=== PATIENT | male | born 1990 | race Caucasian/White ===

== ENCOUNTER 2021-04-22 22:02 | Inpatient (IN) | payer OTHER ==
[~2021-04-22] VITALS: Ht 188 cm; Wt 99.8 kg
[~2021-04-22 22:02] MED LIST: LORTAB 7.5/5001 TA1 PO
[2021-04-22 22:07] VITALS: BP 133/105
[2021-04-22 22:57] LABS: BASOPHILS 0.5 % (0.0-2.0); EOSINOPHILS 0.1 % (0.0-3.0); RDW 13.2 % (10.5-14.5)
[2021-04-22 22:59] LABS: ABSOLUTE NEUTROPHILS 6.2 thou/uL (1.4-8.2); HEMATOCRIT 51.3 % (42.0-52.0); LYMPHOCYTES 13.5 % (24.0-44.0); MCH 32.8 pg (26.0-34.0); MCHC 35.2 g/dL (28.0-37.0); MCV 93.3 fL (80.0-100.0); MONOCYTES 12.7 % (1.0-8.0); POLYS 73.2 % (36.0-66.0); WBC 8.5 thou/uL (4.0-11.0)
[2021-04-22 23:02] LABS: PLATELET COUNT 145 thou/uL (150-400)
[2021-04-22 23:05] LABS: CALCIUM 9.3 mg/dL (8.5-10.1)
[2021-04-22 23:08] LABS: ALBUMIN 4.5 g/dL (3.4-5.0); TOTAL BILIRUBIN 1.8 mg/dL (0.2-1.0); TOTAL PROTEIN 8.7 g/dL (6.4-8.2)
--- NOTE | 2021-04-23 07:09 | NUR ---
TOOK OVER CARE AT THIS TIME
--- NOTE | 2021-04-23 08:26 | EKG ---
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1990 Requested By: Royce Montesinos Order Number: [id number] MD: Ian Sierra Measurements Intervals [place] Rate: 124 P: 80 NM: 128 QRS: 83 QRSD: 94 T: 15 QT: 333 QTc: 479 Interpretive Statements Sinus tachycardia Ventricular premature complex Probable left atrial enlargement Borderline prolonged QT interval No previous ECG available for comparison Electronically Signed On 04-23-2021 8:26:08 CDT by Ian Sierra [email or web address] <ELECTRONICALLY SIGNED> By: Ian Sierra MD, [facility] 04/23/21 0826 0 0111 Ian Sierra MD, FACC /EPI
[2021-04-23 14:37] LABS: INR 1.06; PROTIME 11.5 Seconds (10.5-12.1)
--- NOTE | 2021-04-23 14:41 | EKG ---
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1990 Requested By: Adrian Lambert Order Number: [id number] MD: Ian Sierra Measurements Intervals [place] Rate: 123 P: 91 [place]: 128 QRS: 89 QRSD: 97 T: 18 QT: 327 QTc: 468 Interpretive Statements Sinus tachycardia Multiform ventricular premature complexes Probable left atrial enlargement Borderline T wave abnormalities No previous ECG available for comparison Electronically Signed On 04-23-2021 14:41:38 CDT by Ian Sierra [email or web address] <ELECTRONICALLY SIGNED> By: Ian Sierra MD, [facility] 04/23/21 1441 0110 0110 Ian Sierra MD, FACC /EPI
[2021-04-23 15:35] VITALS: BP 131/99
--- NOTE | 2021-04-23 15:35 | NUR ---
HANDOFF TOOL SENT AT THIS TIME
--- NOTE | 2021-04-23 15:40 | NUR ---
ATTEMPTED TO CALL REPORT AT THIS TIME, RN TO CALL BACK IN X5 MINUTES
[2021-04-23 15:54] VITALS: BP 131/99
--- NOTE | 2021-04-23 15:54 | NUR ---
REPORT GIVEN TO MERI REYES AT THIS TIME. READY FOR TRANSPORT
--- NOTE | 2021-04-23 17:12 | NUR ---
30-year-old male presents to the ED with complaint of nausea and vomiting for last couple weeks. Today the patient reports this has gotten progressively worse. Patient also reports seeing blood streaks with her vomit. Patient also states her pain that is worse with eating. Pt reports drinking up to a 1/5th per day of ETOH. GI notes coffee ground emesis. Patient is to undergo an EGD on 04-23-21. Per ED record patient is A&O x4 and lists Tammy Nugent as contact at [phone] or [phone]. Once plan of care and discharge needs are established, CM will follow for such needs.
--- NOTE | 2021-04-23 17:16 | NUR ---
PT ORIENTED TO ROOM AND UNIT. BED LWO AND LOCKED, SIDE RAILS UPX3 CALL LIGHT IN REACH, TELE APLLIED, SEIZURE PRECATIONS IN PLACE. WILL CONTINUE TO ASSESS.
[2021-04-23 21:15] VITALS: BP 150/106
[2021-04-24 04:07] LABS: ALBUMIN 3.2 g/dL (3.4-5.0); CALCIUM 8.8 mg/dL (8.5-10.1); CREATININE 0.8 mg/dL (0.7-1.3); DIRECT BILIRUBIN 0.4 mg/dL (<0.1-0.2); POTASSIUM 3.3 mmol/L (3.5-5.1); TOTAL BILIRUBIN 1.9 mg/dL (0.2-1.0); TOTAL PROTEIN 6.3 g/dL (6.4-8.2)
[2021-04-24 04:15] VITALS: BP 142/96
[2021-04-24 08:15] VITALS: BP 150/100
[2021-04-24 17:00] VITALS: BP 100/108
--- NOTE | 2021-04-24 18:23 | NUR ---
ASSUMED CARE SHIFT CHANGE. VSS. CIWA SCORES <10 THIS SHIFT. TREATED PER CIWA PROTOCOL. DENIES PAIN. PT HAS PERSISTENT HICCUPS, DR NOTIFIED, NO NEW ORDERS. PT UP KATHY FAIR, HR ELEVATED WITH ACTIVITY. C/O NAUSEA ZOFRAN GIVEN X1, RELIEF OBTAINED. CLR LIQ DIET PT KATHY WELL. CONT POC, PROGRESSING TOWARD GOALS. WILL PASS REPORT TO APOLINAR JEREZ.
[2021-04-24 20:15] VITALS: BP 108/67; BP 141/109
[2021-04-25 04:45] VITALS: BP 145/91
[2021-04-25 07:50] VITALS: BP 103/63
[2021-04-25 07:55] VITALS: BP 144/97
[2021-04-25 09:19] LABS: HEMATOCRIT 42.6 % (42.0-52.0); HEMOGLOBIN 14.7 gm/dL (14.0-18.0); MCH 32.5 pg (26.0-34.0); MCHC 34.5 g/dL (28.0-37.0); MCV 94.1 fL (80.0-100.0); RBC 4.53 mil/uL (4.50-6.00); RDW 12.8 % (10.5-14.5)
[2021-04-25 09:31] LABS: CALCIUM 9.5 mg/dL (8.5-10.1); CREATININE 0.9 mg/dL (0.7-1.3); MAGNESIUM 1.7 mg/dL (1.8-2.4); POTASSIUM 3.3 mmol/L (3.5-5.1)
[2021-04-25 12:24] LABS: INR 1.04; PROTIME 11.3 Seconds (10.5-12.1)
--- NOTE | 2021-04-25 15:20 | NUR ---
ASSUMED CARE OF PT THIS AM. PT IS A&O X4, DENIES ANY CHEST PAIN. DENIES ANY ANIXETY. ON RA. PT HAS HAD RUNS OF SINUS TACH. NOTIFIED. WILL CONTINUE TO MONITOR.
[2021-04-25 15:55] VITALS: BP 142/103
[2021-04-25] MEDS ORDERED: PROTONIX40 M2 PO (18:13)
[2021-04-25 18:16] VITALS: BP 142/103
[2021-04-25 18:18] VITALS: BP 142/103
--- NOTE | 2021-04-25 18:32 | NUR ---
Met with patient who admits with ETOH withdraw. Reported to patient his mother left message on [employer] phone. requested permission to call her back and he said "no." Patient is not employed, lives with girlfriend. patient reports ETOH tx in past. Patient does not have health insurance. Gave resources for health clinics and ETOH treatment. Encouraged patient to seek ETOH treatment. [employer] following
--- NOTE | 2021-04-26 07:26 | NUR ---
1830 DISCHARGE NOTE: DISCHARGE INSTRUCTIONS AND NEW MED INFO GIVEN TO PT. IV AND TELE D/C. ALL BELONGINGS WITH PT. DENIES ANY QUESTIONS. A FRINED UP TO THE FLOOR TO PICK HIM UP.
== END 2021-04-25 19:00 | disposition home or self-care (01) | DRG 368 ==
LOC: ER 22:02 → EROBS 04-23 02:40 → 2N 04-23 16:38
PROVIDERS: Emergency Medicine; Nurse Practitioner; Nurse Practitioner Family; ADMIT Internal Medicine; ATTEND Internal Medicine
PROC: 0DJ08ZZ Inspection of Upper Intestinal Tract, Via Natural or Artificial Opening Endoscopic (ICD-10-PCS; principal; 2021-04-24)
DX: K22.6 Gastro-esophageal laceration-hemorrhage syndrome (principal); K85.90 Acute pancreatitis without necrosis or infection, unspecified; F10.139 Alcohol abuse with withdrawal, unspecified; K22.11 Ulcer of esophagus with bleeding; E87.6 Hypokalemia; R74.01 Elevation of levels of liver transaminase levels; I10 Essential (primary) hypertension; K21.9 Gastro-esophageal reflux disease without esophagitis; K70.10 Alcoholic hepatitis without ascites; K44.9 Diaphragmatic hernia without obstruction or gangrene; Z20.822 Contact with and (suspected) exposure to COVID-19
CPT/HCPCS: 10081; 62110; 62900; 70005